=== PATIENT | male | born 1990 | race Hispanic/Latino ===

== ENCOUNTER 2022-12-24 07:06 | Emergency (ER) | payer OTHER ==
[~2022-12-24] VITALS: Ht 185.4 cm; Wt 95.3 kg
[2022-12-24 07:32] VITALS: BP 152/84
== END 2022-12-24 08:22 ==
LOC: EDH 07:06
DX: Z20.89 Contact with and (suspected) exposure to other communicable diseases (principal); F17.200 Nicotine dependence, unspecified, uncomplicated
CPT/HCPCS: 93005